=== PATIENT | male | born 1970 | race Caucasian/White ===

== ENCOUNTER 2017-11-22 07:42 | Day surgery (SDC) | payer OTHER ==
[2017-11-22 08:46] LABS: Absolute Lymphocytes (CBC) 0.9 K/uL (0.7-4.9); Absolute Monocytes 0.7 K/uL (0.1-1.3); Absolute Neutrophil 13.7 K/uL (1.8-8.0); Basophils % 0.3 % (0-1.3); Eosinophils % 0.1 % (0-4.4); Hematocrit 44.6 % (39.6-49.0); MCH 34.9 pg (27.0-35.0); MCV 98.4 fL (80-100); Monocytes % 4.6 % (3.3-12.3); RBC Red Blood Cell Count 4.53 M/uL (4.33-5.43)
[2017-11-22] MEDS ORDERED: MORPHINE 4 MG/ML SYR ONE (08:51)
[2017-11-22] MEDS ORDERED: ONDANSETRON 4 MG/2 ML VIAL ONE (08:51)
[2017-11-22] MEDS ORDERED: NA CHLORIDE 0.9% 1,000 ML ONE (08:52)
[2017-11-22] MEDS ORDERED: PANTOPRAZOLE 40 MG INJ ONE (08:52)
[2017-11-22 08:58] LABS: ALT/SGPT 18 U/L (12-78); AST/SGOT 17 U/L (15-37); Albumin 3.6 g/dL (3.4-5.0); Alkaline Phosphatase 78 U/L (45-117); BUN Blood Urea Nitrogen 10 mg/dL (7-18); Bicarbonate 28 mmol/L (21-32); Bilirubin Direct 0.2 mg/dL (0-0.2); Bilirubin Total 0.5 mg/dL (0.2-1.0); CKMB Creatine Kinase MB < 1.0 ng/mL (0.3-3.6); Creatine Phosphokinase 54 U/L (39-308); Glucose Level 126 mg/dL (74-106); Lipase 181 U/L (73-393); NT PRO-BNP 264 pg/mL (<125); Potassium 3.6 mmol/L (3.5-5.1); Protein, Total 8.3 g/dL (6.4-8.2); Sodium Level 138 mmol/L (136-145)
--- NOTE | 2017-11-22 09:37 | EKG ---
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
[2017-11-22 10:10] LABS: Urine Blood NEGATIVE (NEG); Urine Glucose NEGATIVE (NEG); Urine Protein 2+ (NEG)
[2017-11-22 10:16] LABS: Blood Morphology Comment NOT SEEN (NOT SEEN); Platelet Estimate ADEQ; Urine White Blood Cell Casts OK
--- NOTE | 2017-11-22 10:22 | RAD REPORT ---
EXAM DESCRIPTION: CT - Abdomen Pelvis W Contrast - 11/22/2017 10:08 am CLINICAL HISTORY: Abdominal pain and vomiting since this morning 1 COMPARISON: None. TECHNIQUE: Computed axial tomography of the abdomen and pelvis was obtained. 100 cc Isovue-300 is ad ministered intravenously. Oral contrast was given. All CT scans are performed using dose optimization technique as appropriate and may include automated exposure control or mA/KV adjustment according to patient size. FINDINGS: The liver, spleen, pancreas, adrenals and kidneys appear unremarkable. The the appendix is dilated and fluid-filled. The proximal appendix extends inferiorly from the cecum . The remainder the appendix extends superiorly and medially. A small amount of free fluid is present . There is no evidence of diverticulitis IMPRESSION: Appendicitis
--- NOTE | 2017-11-22 10:32 | EDPHYS ---
Physician Documentation [facility] Name: Tavo Carney II Age: 47 yrs Sex: Male : 1970 Arrival Date: 11/22/2017 Time: 07:46 Bed 17 Private MD: None, None ED Physician Nolan Rebollar HPI: 11/22 08:08 This 47 yrs old Male presents to ER via Ambulatory with complaints of jasiel Abdominal Pain. 08:08 The patient presents with abdominal pain in the epigastric area, in the upper abdomen. jasiel Onset: The symptoms/episode began/occurred 3 day(s) ago. The patient presents to the emergency department with nausea, vomiting, diarrhea. Onset: The symptoms/episode began/occurred 3 day(s) ago. Possible causes: unknown. The symptoms are aggravated by nothing. The symptoms are alleviated by nothing. Associated signs and symptoms: The patient has no apparent associated signs or symptoms. The symptoms do not radiate. Associated signs and symptoms: none. Historical: - Allergies: 08:03 No Known Allergies; ch - Home Meds: 08:03 None [Active]; ch - PMHx: 08:03 None; ch - PSHx: 08:03 None; ch - Immunization history:: Adult Immunizations up to date, Last tetanus immunization: up to date Flu vaccine is not up to date. - Social history:: Smoking status: Patient uses tobacco products, smokes two packs cigarettes per day. Patient uses alcohol, only on a social basis. weekly. - Ebola Screening: : Patient negative for fever greater than or equal to 101.5 degrees Fahrenheit, and additional compatible Ebola Virus Disease symptoms Patient denies exposure to infectious person Patient denies travel to an Ebola-affected area in the 21 days before illness onset No symptoms or risks identified at this time. - Family history:: not pertinent. ROS: 08:08 Constitutional: Negative for fever, chills, and weight loss, Eyes: Negative for injury, jasiel pain, redness, and discharge, ENT: Negative for injury, pain, and discharge, Neck: Negative for injury, pain, and swelling, Cardiovascular: Negative for chest pain, palpitations, and edema, Respiratory: Negative for shortness of breath, cough, wheezing, and pleuritic chest pain, Back: Negative for injury and pain, : Negative for injury, bleeding, discharge, and swelling, MS/Extremity: Negative for injury and deformity, Skin: Negative for injury, rash, and discoloration, Neuro: Negative for headache, weakness, numbness, tingling, and seizure, Psych: Negative for depression, anxiety, suicide ideation, homicidal ideation, and hallucinations, Allergy/Immunology: Negative for hives, rash, and allergies, Endocrine: Negative for neck swelling, polydipsia, polyuria, polyphagia, and marked weight changes, Hematologic/Lymphatic: Negative for swollen nodes, abnormal bleeding, and unusual bruising. 08:08 Abdomen/GI: Positive for abdominal pain, of the epigastric area and left upper quadrant. Exam: 08:08 Constitutional: This is a well developed, well nourished patient who is awake, alert, jasiel and in no acute distress. Head/Face: Normocephalic, atraumatic. Eyes: Pupils equal round and reactive to light, extra-ocular motions intact. Lids and lashes normal. Conjunctiva and sclera are non-icteric and not injected. Cornea within normal limits. Periorbital areas with no swelling, redness, or edema. ENT: Nares patent. No nasal discharge, no septal abnormalities noted. Tympanic membranes are normal and external auditory canals are clear. Oropharynx with no redness, swelling, or masses, exudates, or evidence of obstruction, uvula midline. Mucous membranes moist. Neck: Trachea midline, no thyromegaly or masses palpated, and no cervical lymphadenopathy. Supple, full range of motion without nuchal rigidity, or vertebral point tenderness. No Meningismus. Chest/axilla: Normal chest wall appearance and motion. Nontender with no deformity. No lesions are appreciated. Cardiovascular: Regular rate and rhythm with a normal S1 and S2. No gallops, murmurs, or rubs. Normal PMI, no JVD. No pulse deficits. Respiratory: Lungs have equal breath sounds bilaterally, clear to auscultation and percussion. No rales, rhonchi or wheezes noted. No increased work of breathing, no retractions or nasal flaring. Back: No spinal tenderness. No costovertebral tenderness. Full range of motion. Male : Normal genitalia with no discharge or lesions. Skin: Warm, dry with normal turgor. Normal color with no rashes, no lesions, and no evidence of cellulitis. MS/ Extremity: Pulses equal, no cyanosis. Neurovascular intact. Full, normal range of motion. Neuro: Awake and alert, GCS 15, oriented to person, place, time, and situation. Cranial nerves II-XII grossly intact. Motor strength 5/5 in all extremities. Sensory grossly intact. Cerebellar exam normal. Normal gait. Psych: Awake, alert, with orientation to person, place and time. Behavior, mood, and affect are within normal limits. 08:08 Abdomen/GI: Inspection: abdomen appears normal, Bowel sounds: normal, Palpation: mild abdominal tenderness, moderate abdominal tenderness, in the epigastric area and left upper quadrant, Liver: no appreciated palpable abnormalities, Hernia: not appreciated. Vital Signs: 08:03 BP 162 / 107; Pulse 84; Resp 16; Temp 98.2; Pulse Ox 98% on R/A; Weight 74.84 kg; ch Height 5 ft. 7 in. (170.18 cm); Pain 8/10; 09:22 BP 158 / 82; Pulse 71; Resp 16; Temp 98.3; Pulse Ox 99% on R/A; Pain 2/10; ch 10:45 BP 160 / 97; Pulse 64; Resp 18; Temp 98.3; Pulse Ox 99% on R/A; Pain 2/10; ch 11:29 BP 165 / 84; Pulse 58; Resp 12; Pulse Ox 97% on R/A; Pain 2/10; ch 08:03 Body Mass Index 25.84 (74.84 kg, 170.18 cm) MDM: 07:56 Patient medically screened. [facility] 08:10 Data reviewed: vital signs, nurses notes, lab test result(s), EKG, radiologic studies, [facility] CT scan, plain films. 11/22 08:07 Order name: Basic Metabolic Panel; Complete Time: 10:25 [facility] 11/22 08:07 Order name: CBC with Diff; Complete Time: 10:25 [facility] 11/22 08:07 Order name: Ckmb; Complete Time: 10:25 [facility] 11/22 08:07 Order name: CPK; Complete Time: 10:25 [facility] 11/22 08:07 Order name: LFT's; Complete Time: 10:25 [facility] 11/22 08:07 Order name: Magnesium; Complete Time: 10:25 [facility] 11/22 08:07 Order name: NT PRO-BNP; Complete Time: 10:25 [facility] 11/22 08:07 Order name: PT-INR; Complete Time: 10:25 [facility] 11/22 08:07 Order name: Ptt, Activated; Complete Time: 10:25 [facility] 11/22 08:07 Order name: Troponin (emerg Dept Use Only); Complete Time: 10:25 [facility] 11/22 08:07 Order name: Lipase; Complete Time: 10: [facility] 11/22 08:52 Order name: CBC Smear Scan; Complete Time: 10:25 [facility] 11/22 09:25 Order name: Urine Dipstick--Ancillary (enter results); Complete Time: 10:25 11/22 10:37 Order name: Basic Metabolic Panel [facility] 11/22 08:07 Order name: XRAY Chest (1 view) [facility] 11/22 08:07 Order name: EKG; Complete Time: 08:08 [facility] 11/22 08:07 Order name: CT Abd/Pelvis - W/Contrast; Complete Time: 10:25 [facility] 11/22 10:37 Order name: NPO [facility] 11/22 10:37 Order name: Basic Metabolic Panel [facility] 11/22 10:37 Order name: CBC with Automated Diff [facility] 11/22 10:37 Order name: CBC with Automated Diff [facility] 11/22 10:37 Order name: Lipase [facility] 11/22 10:37 Order name: Lipase [facility] 11/22 10:37 Order name: Liver (Hepatic) Function [facility] 11/22 10:37 Order name: Liver (Hepatic) Function [facility] 11/22 08:07 Order name: Cardiac monitoring; Complete Time: 11:26 [facility] 11/22 08:07 Order name: EKG - Nurse/Tech; Complete Time: 09: [facility] 11/22 08:07 Order name: IV Saline Lock; Complete Time: 09:21 [facility] 11/22 08:07 Order name: Labs collected and sent; Complete Time: 09: [facility] 11/22 08:07 Order name: O2 Per Protocol; Complete Time: 09: [facility] 11/22 08:07 Order name: O2 Sat Monitoring; Complete Time: 09:21 [facility] 11/22 08:07 Order name: Urine Dipstick-Ancillary (obtain specimen); Complete Time: 09:22 [facility] Administered Medications: 08:45 Drug: NS 0.9% 1000 ml Route: IV; Rate: 1 bolus; Site: right forearm; 10:00 Follow up: IV Status: Completed infusion; IV Intake: 1000ml ch 08:50 Drug: morphine 4 mg Route: IVP; Site: right forearm; ch 11:25 Follow up: Response: No adverse reaction; Marked relief of symptoms ch 08:50 Drug: Zofran 4 mg Route: IVP; Site: right forearm; ch 11:25 Follow up: Response: No adverse reaction; Marked relief of symptoms ch 08:50 Drug: ProTONIX 40 mg Route: IVP; Site: right forearm; ch 11:24 Follow up: Response: No adverse reaction; Marked relief of symptoms ch 11:00 Drug: Zosyn 3.375 grams Route: IVPB; Infused Over: 60 mins; Site: right forearm; ch 11:59 Follow up: IV Status: Infusion continued upon admission; IV Intake: 80ml Disposition: 11/22/17 10:32 Hospitalization ordered by Primo Marin for Observation. Preliminary diagnosis are Acute appendicitis, Abdominal tenderness, Elevated white blood cell count. - Bed requested for Telemetry/MedSurg (observation). - Status is Observation. - Condition is Stable. - Problem is new. - Symptoms have improved. UTI on Admission? No Signatures: Dispatcher [employer] EDMS Isabelle Bauer Christina, RN RN Nolan Rebollar MD MD cha Corrections: (The following items were deleted from the chart) 11:07 10:32 Hospitalization Ordered by Ha Sheldon MD for Observation. Preliminary diagnosis bd is Acute appendicitis; Abdominal tenderness; Elevated white blood cell count. Bed requested for Telemetry/MedSurg (observation). Status is Observation. Condition is Stable. Problem is new. Symptoms have improved. UTI on Admission? No. jasiel 11:59 11:07 11/22/2017 10:32 Hospitalization Ordered by Primo Marin MD for Observation. Preliminary diagnosis is Acute appendicitis; Abdominal tenderness; Elevated white blood cell count. Bed requested for Telemetry/MedSurg (observation). Status is Observation. Condition is Stable. Problem is new. Symptoms have improved. UTI on Admission? No. bd
--- NOTE | 2017-11-22 10:32 | ER ---
Nurse's Notes [facility] Name: Tavo Carney II Age: 47 yrs Sex: Male : 1970 Arrival Date: 11/22/2017 Time: 07:46 Bed 17 Private MD: None, None Diagnosis: Acute appendicitis;Abdominal tenderness;Elevated white blood cell count Presentation: 11/22 08:01 Presenting complaint: Patient states: abdominal pain since 1800 yesterday. for the past ch year however I have had stomach issues, diarrhea, black stools, tarry stools, I always have some stomach cramps and aches. vomiting started this morning, and the pain is unlike anything I have ever felt. Transition of care: patient was not received from another setting of care. Onset of symptoms was November 21, 2017 at 18:00. Risk Assessment: Do you want to hurt yourself or someone else? Patient reports no desire to harm self or others. Initial Sepsis Screen: Does the patient meet any 2 criteria? No. Patient's initial sepsis screen is negative. Does the patient have a suspected source of infection? No. Patient's initial sepsis screen is negative. Care prior to arrival: None. 08:01 Method Of Arrival: Ambulatory 08:01 Acuity: CESAR 3 ch Triage Assessment: 08:03 General: Appears in no apparent distress. comfortable, Behavior is calm, cooperative. Pain: Complains of pain in epigastric area, right upper quadrant and left upper quadrant Pain currently is 8 out of 10 on a pain scale. Neuro: No deficits noted. Cardiovascular: No deficits noted. Respiratory: No deficits noted. Airway is patent Respiratory effort is even, unlabored. GI: Reports upper abdominal pain, nausea, vomiting. GI: Abdomen is flat, non-distended, Bowel sounds present X 4 quads. Abd is soft X 4 quads Abdomen is tender to palpation in right upper quadrant, left upper quadrant and abdomen diffusely. : No signs and/or symptoms were reported regarding the genitourinary system. Derm: No signs and/or symptoms reported regarding the dermatologic system. Skin is pink, warm \T\ dry. Musculoskeletal: Circulation, motion, and sensation intact. Historical: - Allergies: 08:03 No Known Allergies; ch - Home Meds: 08:03 None [Active]; ch - PMHx: 08:03 None; ch - PSHx: 08:03 None; - Immunization history:: Adult Immunizations up to date, Last tetanus immunization: up to date Flu vaccine is not up to date. - Social history:: Smoking status: Patient uses tobacco products, smokes two packs cigarettes per day. Patient uses alcohol, only on a social basis. weekly. - Ebola Screening: : Patient negative for fever greater than or equal to 101.5 degrees Fahrenheit, and additional compatible Ebola Virus Disease symptoms Patient denies exposure to infectious person Patient denies travel to an Ebola-affected area in the 21 days before illness onset No symptoms or risks identified at this time. - Family history:: not pertinent. Screenin:22 Abuse screen: Denies threats or abuse. Denies injuries from another. Nutritional screening: No deficits noted. Tuberculosis screening: No symptoms or risk factors identified. Fall Risk None identified. Assessment: 09:22 Reassessment: Patient appears in no apparent distress at this time. Patient and/or family updated on plan of care and expected duration. Pain level reassessed. Patient is alert, oriented x 3, equal unlabored respirations, skin warm/dry/pink. Patient states feeling better. Patient states symptoms have improved. 09:43 Reassessment: Patient appears in no apparent distress at this time. No changes from previously documented assessment. Patient and/or family updated on plan of care and expected duration. Pain level reassessed. Patient is alert, oriented x 3, equal unlabored respirations, skin warm/dry/pink. 10:45 Reassessment: Patient appears in no apparent distress at this time. No changes from previously documented assessment. Patient and/or family updated on plan of care and expected duration. Pain level reassessed. Patient is alert, oriented x 3, equal unlabored respirations, skin warm/dry/pink. 11:26 Reassessment: Patient appears in no apparent distress at this time. Patient and/or family updated on plan of care and expected duration. Pain level reassessed. Patient is alert, oriented x 3, equal unlabored respirations, skin warm/dry/pink. DR. Marin speaks with pt, pt consent form filled out and at bedside. pt verb understanding of procedure and precautions, and NPO status. family at bedside. 11:58 Reassessment: Patient appears in no apparent distress at this time. report given at bedside to RN. Vital Signs: 08:03 BP 162 / 107; Pulse 84; Resp 16; Temp 98.2; Pulse Ox 98% on R/A; Weight 74.84 kg; ch Height 5 ft. 7 in. (170.18 cm); Pain 8/10; 09:22 BP 158 / 82; Pulse 71; Resp 16; Temp 98.3; Pulse Ox 99% on R/A; Pain 2/10; ch 10:45 BP 160 / 97; Pulse 64; Resp 18; Temp 98.3; Pulse Ox 99% on R/A; Pain 2/10; ch 11:29 BP 165 / 84; Pulse 58; Resp 12; Pulse Ox 97% on R/A; Pain 2/10; ch 08:03 Body Mass Index 25.84 (74.84 kg, 170.18 cm) ED Course: 07:46 Patient arrived in ED. mr 07:47 None, None is Private Physician. mr 07:56 Nolan Rebollar MD is Attending Physician. [facility] 08:01 Irma Polanco, RN is Primary Nurse. 08:03 Triage completed. 08:03 Arm band placed on left wrist. ch 08:35 No apparent distress. Resting quietly. ch 08:35 No provider procedures requiring assistance completed. Inserted saline lock: 20 gauge ch in right forearm, using aseptic technique. Blood collected. 08:35 Urine collected: clean catch specimen. ch 09:22 Patient has correct armband on for positive identification. Placed in gown. Bed in low ch position. Call light in reach. Side rails up X 1. Adult w/ patient. site monitor on. Pulse ox on. NIBP on. Warm blanket given. 09:44 X-ray completed. Portable x-ray completed in exam room. Patient tolerated procedure jb2 well. 09:49 XRAY Chest (1 view) In Process Unspecified. EDMS 10:05 CT completed. Patient tolerated procedure well. Patient moved to CT via wheelchair. sj Patient moved back from CT. 10:08 CT Abd/Pelvis - W/Contrast In Process Unspecified. EDMS 10:31 aH Sheldon MD is Hospitalizing Provider. jasiel 11:07 Hospitalizing Provider role handed off by Ha Sheldon MD bd 11:07 Primo Marin MD is Hospitalizing Provider. bd 19:16 Patient admitted, IV remains in place. ch Administered Medications: 08:45 Drug: NS 0.9% 1000 ml Route: IV; Rate: 1 bolus; Site: right forearm; ch 10:00 Follow up: IV Status: Completed infusion; IV Intake: 1000ml ch 08:50 Drug: morphine 4 mg Route: IVP; Site: right forearm; ch 11:25 Follow up: Response: No adverse reaction; Marked relief of symptoms ch 08:50 Drug: Zofran 4 mg Route: IVP; Site: right forearm; ch 11:25 Follow up: Response: No adverse reaction; Marked relief of symptoms ch 08:50 Drug: ProTONIX 40 mg Route: IVP; Site: right forearm; ch 11:24 Follow up: Response: No adverse reaction; Marked relief of symptoms ch 11:00 Drug: Zosyn 3.375 grams Route: IVPB; Infused Over: 60 mins; Site: right forearm; ch 11:59 Follow up: IV Status: Infusion continued upon admission; IV Intake: 80ml ch Intake: 10:00 IV: 1000ml; Total: 1000ml. ch 11:59 IV: 80ml; Total: 1080ml. ch Outcome: 10:32 Decision to Hospitalize by Provider. [facility] 11:45 Admitted to OR accompanied by nurse, via wheelchair, with chart. 11:45 Condition: stable 11:45 Instructed on the need for admit. 11:59 Patient left the ED. Signatures: Dispatcher [employer] EDMS Isabelle Bauer Christina, RN RN ch Anderson, Corey, MD MD cha Rivera, Maria mr Buechter, Jesse jb2 Jones, Susan sj
[2017-11-22] MEDS ORDERED: ONDANSETRON 4 MG/2 ML VIAL IV PRN (10:34)
[2017-11-22] MEDS ORDERED: ACETAMINOPHEN 500 MG TAB PO PRN (10:34)
[2017-11-22] MEDS ORDERED: MORPHINE 4 MG/ML SYR IV PRN (10:35)
[2017-11-22] MEDS ORDERED: D5 0.45 NS 1,000 ML IV SCH (11:00)
[2017-11-22] MEDS ORDERED: PIPER/TAZO/NS 3.375gm 3.375 GM/100 ML BAG ONE (11:01)
[2017-11-22] MEDS ORDERED: PIPER/TAZO/NS 3.375gm 3.375 GM/100 ML BAG IVPB SCH (12:00)
[2017-11-22] MEDS ORDERED: Ringers Lactate 1,000 ML IV ONE (12:15)
--- NOTE | 2017-11-22 12:16 | RAD REPORT ---
EXAM DESCRIPTION: Saulo Single View11/22/2017 9:49 am CLINICAL HISTORY: Abdominal pain COMPARISON: none FINDINGS: The lungs appear clear of acute infiltrate. The heart is normal size IMPRESSION: No acute abnormalities displayed
[2017-11-22] MEDS ORDERED: MIDAZOLAM HCL 2 MG/2 ML INJ ONE (13:00)
[2017-11-22] MEDS ORDERED: FENTANYL CITR 100 MCG/2 ML ONE ×2 (13:00→13:52)
[2017-11-22] MEDS ORDERED: PROPOFOL 200 MG/20 ML VIAL IV ONE (13:00)
[2017-11-22] MEDS ORDERED: MEPERIDINE HCL 50 MG/ML AMP ONE (13:01)
[2017-11-22] MEDS ORDERED: PROMETHAZINE 25 MG/ML VIAL ONE (13:01)
[2017-11-22] MEDS ORDERED: ROCURONIUM 50 MG/5 ML VIAL IV ONE (13:01)
[2017-11-22] MEDS ORDERED: ONDANSETRON HCL 40 MG/20 ML VIAL ONE (13:01)
[2017-11-22] MEDS ORDERED: KETOROLAC 30 MG/ML INJ ONE (14:02)
[2017-11-22] MEDS ORDERED: GLYCOPYRROLATE 0.2 MG/ML SYR ONE (14:02)
[2017-11-22] MEDS ORDERED: NEOSTIGMINE 1 MG/ML -5 ML SYRINGE ONE (14:02)
[2017-11-22] MEDS ORDERED: FAMOTIDINE 20 MG/2 ML VIAL IV SCH (21:00)
--- NOTE | 2017-11-22 22:38 | HP ---
Date of Admission: 11/22/2017 Diagnosis: Acute appendicitis. History Of Present Illness: This is a case of a 47-year-old patient, comes to us with complaint of a bdominal pain since yesterday 6 o'clock in the afternoon, associated with nausea and vomiting. He de scribes the pain as crampy in nature, never had this before. He denies any dysuria, hematuria, hemat ochezia, or melena, although he states some times dark stool. He was advised the importance. I have discussed that with his primary doctor, so he can have a proper workup for that. Past Medical History: None. Allergies: NONE. Past Surgical History: None. Social History: He does smoke. He does not drink alcohol. Family History: Noncontributory. Review of Systems: Ten points otherwise unremarkable. Physical Examination: General: The patient is awake and alert. HEENT: Pupils are equal, reactive, and anicteric. Neck: Supple. Chest: Clear. Heart: S1, S2. Abdomen: Soft and depressible. There is right lower quadrant tenderness with guarding and rebound. Rovsing sign is positive. Psoas sign is positive. Genitalia: No tenderness. Rectal: Deferred. Extremities: Good capillary refill. Neuro: Cranial nerves 2 through 12 grossly within normal limits. Laboratory Data: Blood work shows WBC count of 15.4, hemoglobin of 15.8. Sodium of 138, glucose of 126. CAT scan of the abdomen and pelvis, interpreted by Dr. Fulton as acute appendicitis with diste nded appendix. Assessment And Plan: He is a 47-year-old patient with acute appendicitis. The benefits, alternative s, and risks of laparoscopic possible open appendectomy were fully explained to the patient, which in clude but are not limited to infection, bleeding, damage to adjacent structures, anesthesia complicat ions, myocardial infarction, even . He also understands this may not relieve the symptoms. He might need more than one surgical intervention. He understood and signed a consent. He was booked e mergently in the OR. WILLI/WADE Voice ID: [id number]
--- NOTE | 2017-11-23 00:52 | OP ---
Date of Procedure: 11/22/2017 Surgeon: Primo Marin MD Biology Internship: DAYA [facility]. Preoperative Diagnosis: Acute appendicitis. Postoperative Diagnosis: Acute appendicitis. Procedure: Laparoscopic appendectomy. Findings: Acute appendicitis. Indications: This is the case of a 47-year-old patient with above diagnosis fully explained the bene fits, alternatives, and risks of laparoscopic, possible open appendectomy which include but are not l imited to infection, bleeding, damage to adjacent structures, anesthesia complication, WA, and even d eath. He also understand, this may not relieve any symptoms. He might need more than one surgical i ntervention. He understood and signed a consent. Description Of Procedure: The patient was brought to the operating room and placed in the supine pos ition. Anesthesia was done without complication. Abdominal area was prepped and draped in a sterile fashion. Marcaine 0.5% injected for local anesthetic, followed by sharp incision of the skin in the infraumbilical region. Incision was carried down to fascia, which was opened under direct vision. Peritoneum was encountered, opened under direct vision. Vicryl #1 placed inside the fascia. Onofre trocar was carefully introduced. No bleeding was obtained. I placed 2 more trocars, 5 mm each one o f them, in the suprapubic and left lower quadrant under direct visualization. We noticed the appendi x to be inflamed. We proceeded to create a window in the base of the appendix and transected that wi th an Endo ERIK 45 mm 3.5, and the mesoappendix with an Endo ERIK 45 mm 2.5. Further hemostasis was ob tained with the help of hemoclips 5 mm. The appendix was removed from abdominal cavity using EndoCat ch through umbilical incision. The area was inspected once again. No bowel leak. No bleeding. At that moment, I proceeded to remove the trocars under direct vision. Deflated pneumoperitoneum. Clos ed the fascia and the umbilical hernia with #1 Vicryl. Irrigated subcu tissue, closed that with 3-0 chromic and then the skin with elle. Sponge count and instrument counts were correct. The patien t tolerated the procedure well. The patient was sent to recovery in stable condition Disposition: Home. Activity: As tolerated. No heavy lifting. Followup: Follow up in my office in 1 week. Call for appointment on [phone]. Medications: 1.Cipro 500 p.o. q.12. 2.Vicodin q.4 hours p.r.n. pain. 3.Phenergan 25 p.o. q.6 hours p.r.n. nausea. WILLI/WADE Voice ID: [id number] Report ID: [id number]
== END 2017-11-22 15:49 | disposition home or self-care (01) ==
LOC: ER 07:42 → OR 11:35
PROVIDERS: ATTEND Surgery
PROC: 0DTJ4ZZ Resection of Appendix, Percutaneous Endoscopic Approach (ICD-10-PCS; principal; 2017-11-22 13:15)
DX: K35.80 Unspecified acute appendicitis (principal); F17.200 Nicotine dependence, unspecified, uncomplicated
CPT/HCPCS: 36415; 71045; 74177; 80048; 80076; 81003; 82550; 82553; 83690; 83735; 83880; 84484; 85025; 85610; 85730; 88304; 93005; 96361; 96365; 96375; 99285; C9113; J2175; J2250; J2405; J2543; J2550; J2710; J3010; J7030; Q9967

== ENCOUNTER 2017-11-24 17:03 | Inpatient (IN) | payer OTHER ==
[2017-11-24] MEDS ORDERED: NA CHLORIDE 0.9% 0 ML ONE (17:27)
[2017-11-24] MEDS ORDERED: NA CHLORIDE 0.9% 1,000 ML ONE ×2 (17:37→18:26)
[2017-11-24 17:47] LABS: Absolute Lymphocytes (CBC) 0.4 K/uL (0.7-4.9); Absolute Monocytes 1.2 K/uL (0.1-1.3); Absolute Neutrophil 26.9 K/uL (1.8-8.0); Basophils % 0.3 % (0-1.3); Eosinophils % 0.1 % (0-4.4); Hematocrit 43.3 % (39.6-49.0); Lymphocytes % 1.3 % (15.3-44.8); MCH 34.8 pg (27.0-35.0); MCV 98.8 fL (80-100); MPV 9.3 fL (7.6-11.3); Monocytes % 4.1 % (3.3-12.3); RBC Red Blood Cell Count 4.38 M/uL (4.33-5.43)
--- NOTE | 2017-11-24 17:59 | RAD REPORT ---
EXAM DESCRIPTION: CT - Abdomen Pelvis W Contrast - 11/24/2017 5:42 pm CLINICAL HISTORY: post surgical pain with distension, IV only,;Abd pain<Reason For Exam> Appendectomy 2 days earlier COMPARISON: Abdomen Pelvis W Contrast dated 11/22/2017<Comparisons> Lead selection TECHNIQUE: Biphasic, helical CT imaging of the abdomen and pelvis was performed following 100 ml non -ionic IV contrast. No oral contrast administered. All CT scans are performed using dose optimization technique as appropriate and may include automated exposure control or mA/KV adjustment according to patient size. FINDINGS: No suspicious findings in the lung bases. The liver, spleen, and pancreas show no suspicious findings. Gallbladder and biliary tree are also wi thout suspicious finding. Symmetric renal function is seen with no hydronephrosis or suspicious renal mass. No pyelonephritis o r acute renal parenchymal process. Mostly contracted urinary bladder shows no suspicious finding. No adrenal abnormality. There is a large amount of fluid and air dilating the stomach. No gastric wall thickening or mass. No gastric outlet obstruction. There is a diffuse dilatation throughout the small bowel. This extends t o the terminal ileum and ileocecal valve region. The oral CT contrast is present in the colon and ter bc ileum from the diagnostic study November 22. No extravasation of the oral contrast. No abscess or drainable fluid collection at the surgical site. There is free intraperitoneal fluid an a punctate a ir collection in the pelvis. Fluid and air are not outside of range of normal for recent appendectomy . There is congested or edematous appearance to the fat along the right side abdomen. No soft tissue mass or bulky lymphadenopathy. A few small reactive lymph nodes are present. A 4 centimeter long segment of mid sigmoid colon shows circumferential wall thickening and luminal na rrowing. This is probably a peristalsis artifact. Oral contrast is present proximal and distal to thi s point. No suspicious bony findings. IMPRESSION: Significant gastric and small bowel dilatation to the level of the terminal ileum ileoce jennifer valve region. Pronounced ileus is favored. Adhesion would not develop over such a short interval. The very pronounced spasm near the terminal il eum is possible. Moderate free fluid is present with a few punctate free air collections. This is probably post surgic al fluid and air. Bowel perforation is not suspected. No abscess identified. Circumferential narrowing in the mid sigmoid colon is believed to be either peristalsis artifact or p ostinflammatory spasm. Colon mass is unlikely but not entirely excluded.
[2017-11-24 18:06] LABS: Albumin 2.8 g/dL (3.4-5.0); Bilirubin Direct 0.2 mg/dL (0-0.2); Bilirubin Total 0.7 mg/dL (0.2-1.0); Potassium 3.5 mmol/L (3.5-5.1)
[2017-11-24 18:16] LABS: Blood Morphology Comment NOT SEEN (NOT SEEN); Platelet Estimate ADEQ; Toxic Granulation 1+
--- NOTE | 2017-11-24 18:20 | EDPHYS ---
Physician Documentation [facility] Name: Tavo Carney II Age: 47 yrs Sex: Male : 1970 Arrival Date: 11/24/2017 Time: 17:05 Bed 5 Private MD: None, None ED Physician Roel Hayden HPI: 11/24 17:26 This 47 yrs old Male presents to ER via Ambulatory with complaints of Post burner shaft Pain - ABD. 17:26 The patient presents with abdominal pain abdominal distention. Onset: The rn symptoms/episode began/occurred yesterday. The symptoms do not radiate. Associated signs and symptoms: Pertinent positives: anorexia, constipation, nausea, vomiting, Pertinent negatives: blood in stools. The symptoms are described as achy. Modifying factors: The symptoms are alleviated by nothing, the symptoms are aggravated by movement, touching the area. Severity of pain: At its worst the pain was moderate in the emergency department the pain is unchanged. The patient has not experienced similar symptoms in the past. Reports 2 days post-op from laparoscopic appendectomy by Dr. Gil, states "has been eating the pain meds", but today abdomen more bloated, no appetite, + nausea/vomiting, + constipation. . Historical: - Allergies: 17:11 No Known Allergies; aj - Home Meds: 17:11 hydrocodone-acetaminophen 5-325 mg Oral tab 1 tab every 6 hours [Active]; aj - PMHx: 17:11 None; aj - PSHx: 17:11 Appendectomy; aj - Immunization history:: Adult Immunizations up to date. - Social history:: Smoking status: Patient uses tobacco products, smokes one pack cigarettes per day. - Ebola Screening: : Patient negative for fever greater than or equal to 101.5 degrees Fahrenheit, and additional compatible Ebola Virus Disease symptoms Patient denies exposure to infectious person Patient denies travel to an Ebola-affected area in the 21 days before illness onset No symptoms or risks identified at this time. - Family history:: not pertinent. - Hospitalizations: : No recent hospitalization is reported. ROS: 17:26 Constitutional: Negative for fever, chills, and weight loss, Eyes: Negative for injury, rn pain, redness, and discharge, Neck: Negative for injury, pain, and swelling, Cardiovascular: Negative for chest pain, palpitations, and edema, Respiratory: Negative for shortness of breath, cough, wheezing, and pleuritic chest pain, Abdomen/GI: + abd pain and bloating, + constipation, + anorexia MS/Extremity: Negative for injury and deformity, Skin: Negative for injury, rash, and discoloration, Neuro: Negative for headache, weakness, numbness, tingling, and seizure. Exam: 17:26 Constitutional: Thin male, appears uncomfortable, holding abdomen, which looks rn distended Head/Face: Normocephalic, atraumatic. ENT: dry MM Neck: Trachea midline, no thyromegaly or masses palpated, and no cervical lymphadenopathy. Supple, full range of motion without nuchal rigidity, or vertebral point tenderness. No Meningismus. Cardiovascular: tachycardic regular, no murmur Respiratory: mild tachypnea, diminished at bases Abdomen/GI: distended and firm throughout, wound c/d/i Neuro: Awake and alert, GCS 15, oriented to person, place, time, and situation. Cranial nerves II-XII grossly intact. Motor strength 5/5 in all extremities. Sensory grossly intact. Vital Signs: 17:11 BP 172 / 126; Pulse 116; Resp 22; Temp 97.6; Pulse Ox 96% on R/A; Weight 61.23 kg; aj Height 5 ft. 6 in. (167.64 cm); 17:45 BP 176 / 103; Pulse 106; Resp 20; Pulse Ox 98% ; sv 18:45 BP 189 / 111; Pulse 96; Resp 18; Pulse Ox 98% ; sv 19:00 BP 171 / 111; Pulse 92; Resp 14; Pulse Ox 96% ; bp 17:11 Body Mass Index 21.79 (61.23 kg, 167.64 cm) aj MDM: 17:15 Patient medically screened. rn 18:18 Differential diagnosis: bowel obstruction, ileus. Data reviewed: vital signs, nurses rn notes, lab test result(s), radiologic studies, CT scan, and as a result, I will admit patient. Counseling: I had a detailed discussion with the patient and/or guardian regarding: the historical points, exam findings, and any diagnostic results supporting the discharge/admit diagnosis, lab results, radiology results, the need for further work-up and treatment in the hospital. Response to treatment: the patient's symptoms have mildly improved after treatment, and as a result, I will admit patient. Admission orders: after a detailed discussion of the patient's condition and case, the admit orders are written by me. ED course: Consulted with Dr. Gil, will admit for ileus, NG tube, abx. . 11/24 17:23 Order name: Basic Metabolic Panel rn 11/24 17:23 Order name: CBC with Diff rn 11/24 17:23 Order name: Creatinine for Radiology; Complete Time: 18:04 rn 11/24 17:23 Order name: Hepatic Function rn 11/24 17:23 Order name: Lipase rn 11/24 18:15 Order name: Manual Differential EDMS 11/24 17:23 Order name: IV Saline Lock; Complete Time: 17:35 rn 11/24 17:23 Order name: Labs collected and sent; Complete Time: 17:35 rn 11/24 17:23 Order name: CT Abd/Pelvis - W/Contrast; Complete Time: 18:01 rn 11/24 18:13 Order name: NG Tube; Complete Time: 19:12 rn 11/24 18:14 Order name: NPO; Complete Time: 18:17 rn Administered Medications: 17:30 Drug: NS 0.9% 1000 ml Route: IV; Rate: 1000 ml; Site: left forearm; sv 18:30 Follow up: Response: No adverse reaction; IV Status: Completed infusion; IV Intake: sv 1000ml 19:11 Drug: Flagyl 500 mg Volume: 100 ml; Route: IVPB; Rate: 200 ml/hr; Infused Over: 30 sv mins; Site: right forearm; 20:03 Follow up: IV Status: Completed infusion; IV Intake: 100ml bp 19:11 Drug: NS 0.9% 1000 ml Route: IV; Rate: 125 ml/hr; Site: right forearm; sv 20:04 Follow up: IV Status: Infusion continued upon admission bp 20:04 Drug: LevaQUIN 750 mg Volume: 150 ml; Route: IVPB; Infused Over: 90 mins; Site: right bp antecubital; 20:04 Follow up: IV Status: Infusion continued upon admission bp Disposition: 11/24/17 18:19 Hospitalization ordered by Primo Gil for Inpatient Admission. Preliminary diagnosis is Ileus, unspecified. - Bed requested for Telemetry/MedSurg (Inpatient). - Status is Inpatient Admission. bp - Condition is Stable. - Problem is new. - Symptoms have improved. UTI on Admission? No Signatures: Dispatcher [employer] EDMadison Isabel, RN Louise Sloan RN Margo Babin RN RN aj Nieto, Roman, MD MD rn Peltier, Brian, RN RN bp Corrections: (The following items were deleted from the chart) 19:56 18:19 Hospitalization Ordered by Primo Gil MD for Inpatient Admission. Preliminary diagnosis is Ileus, unspecified. Bed requested for Telemetry/MedSurg (Inpatient). Status is Inpatient Admission. Condition is Stable. Problem is new. Symptoms have improved. UTI on Admission? No. rn 20:54 19:56 11/24/2017 18:19 Hospitalization Ordered by Primo Gil MD for Inpatient bp Admission. Preliminary diagnosis is Ileus, unspecified. Bed requested for Telemetry/MedSurg (Inpatient). Status is Inpatient Admission. Condition is Stable. Problem is new. Symptoms have improved. UTI on Admission? No. mw
--- NOTE | 2017-11-24 18:20 | ER ---
Nurse's Notes [facility] Name: Tavo Carney II Age: 47 yrs Sex: Male : 1970 Arrival Date: 11/24/2017 Time: 17:05 Bed 5 Private MD: None, None Diagnosis: Ileus, unspecified Presentation: 11/24 17:10 Presenting complaint: Patient states: Appendectomy on Wednesday. Reports bloating and pain aj that has gotten worse. Transition of care: patient was not received from another setting of care. Onset of symptoms was November 21, 2017. Risk Assessment: Do you want to hurt yourself or someone else? Patient reports no desire to harm self or others. Initial Sepsis Screen: Does the patient meet any 2 criteria? No. Patient's initial sepsis screen is negative. Does the patient have a suspected source of infection? No. Patient's initial sepsis screen is negative. Care prior to arrival: None. 17:10 Method Of Arrival: Ambulatory aj 17:10 Acuity: CESAR 3 aj Triage Assessment: 17:11 General: Appears in no apparent distress. uncomfortable, Behavior is cooperative, aj anxious. Pain: Complains of pain in abdomen. Neuro: Level of Consciousness is awake, alert, obeys commands, Oriented to person, place, time, situation, Appropriate for age. Respiratory: Airway is patent Respiratory effort is even, unlabored, Respiratory pattern is regular, symmetrical. GI: Abdomen is distended, Reports lower abdominal pain, upper abdominal pain. Derm: Skin is intact, is healthy with good turgor, Skin is pink, warm \T\ dry. normal. Historical: - Allergies: 17:11 No Known Allergies; aj - Home Meds: 17:11 hydrocodone-acetaminophen 5-325 mg Oral tab 1 tab every 6 hours [Active]; aj - PMHx: 17:11 None; aj - PSHx: 17:11 Appendectomy; aj - Immunization history:: Adult Immunizations up to date. - Social history:: Smoking status: Patient uses tobacco products, smokes one pack cigarettes per day. - Ebola Screening: : Patient negative for fever greater than or equal to 101.5 degrees Fahrenheit, and additional compatible Ebola Virus Disease symptoms Patient denies exposure to infectious person Patient denies travel to an Ebola-affected area in the 21 days before illness onset No symptoms or risks identified at this time. - Family history:: not pertinent. - Hospitalizations: : No recent hospitalization is reported. Screenin:40 Abuse screen: Denies threats or abuse. Denies injuries from another. Nutritional sv screening: No deficits noted. Tuberculosis screening: No symptoms or risk factors identified. Fall Risk None identified. Assessment: 17:20 General: Appears in no apparent distress. uncomfortable, slender, Behavior is sv cooperative, appropriate for age, restless. Pain: Complains of pain in abdomen Pain does not radiate. Pain currently is 10 out of 10 on a pain scale. Quality of pain is described as pressure, tender, Pain began Wednesday Is continuous, Noted to be grimacing, restless, Also complains of decreased appetite, constipation, sleeplessness, shortness of breath, Current management is with [place] is ineffective. Neuro: Level of Consciousness is awake, alert, obeys commands, Oriented to person, place, time, situation, Moves all extremities. Full function Gait is steady. Cardiovascular: Patient's skin is warm and dry. Respiratory: Respiratory effort is even, unlabored, Respiratory pattern is regular, symmetrical. GI: Abdomen is distended, Stools are reported to be constipated. Last BM was November 24, 2017. Abdomen is tender to palpation X 4 quads. Abd is rigid X 4 quads. : No signs and/or symptoms were reported regarding the genitourinary system. EENT: No signs and/or symptoms were reported regarding the EENT system. Derm: Skin is normal, Pt has a dressing to the abdomen from his surgery. Musculoskeletal: No signs and/or symptoms reported regarding the musculoskeletal system. 18:00 Reassessment: Patient appears in no apparent distress at this time. No changes from sv previously documented assessment. Patient and/or family updated on plan of care and expected duration. Pain level reassessed. Patient is alert, oriented x 3, equal unlabored respirations, skin warm/dry/pink. 19:00 Reassessment: RECD REPORT FROM MADISON ESPINOSA. 47YO WM P/W ABD PAIN AND DISTENSION SINCE bp APPENDECTOMY ON WEDNESDAY. NGT IN PLACE TO LIWS, ADMIT IN PROCESS. 19:10 Reassessment: Patient appears in no apparent distress at this time. Patient and/or sv family updated on plan of care and expected duration. Pain level reassessed. Patient is alert, oriented x 3, equal unlabored respirations, skin warm/dry/pink. Vital Signs: 17:11 BP 172 / 126; Pulse 116; Resp 22; Temp 97.6; Pulse Ox 96% on R/A; Weight 61.23 kg; aj Height 5 ft. 6 in. (167.64 cm); 17:45 BP 176 / 103; Pulse 106; Resp 20; Pulse Ox 98% ; sv 18:45 BP 189 / 111; Pulse 96; Resp 18; Pulse Ox 98% ; sv 19:00 BP 171 / 111; Pulse 92; Resp 14; Pulse Ox 96% ; bp 17:11 Body Mass Index 21.79 (61.23 kg, 167.64 cm) aj ED Course: 17:05 Patient arrived in ED. sb2 17:06 None, None is Private Physician. sb2 17:10 Triage completed. aj 17:11 Arm band placed on left wrist. Patient placed in an exam room. aj 17:14 Madison Barrera RN is Primary Nurse. sv 17:15 Roel Hayden MD is Attending Physician. rn 17:25 Patient has correct armband on for positive identification. Placed in gown. Bed in low sv position. Call light in reach. Side rails up X 1. Adult w/ patient. Pulse ox on. NIBP on. Door closed. Head of bed elevated. Diet: Patient is NPO. 17:25 Initial lab(s) drawn, by me, sent to lab. Inserted saline lock: 20 gauge in right sv forearm, using aseptic technique. Blood collected. Flushed right forearm with 5 ml normal saline. 17:29 Radiology exam delayed due to IV insertion attempt and/or patient not having jg6 appropriate IV at this time. 17:41 Awaiting lab results, Awaiting radiology results. sv 17:[address] nj 17:41 CT completed. Patient tolerated procedure well. Patient moved back from CT. nj 17:42 CT Abd/Pelvis - W/Contrast In Process Unspecified. EDMS 17:[address]. sv 18:19 Primo Marin MD is Hospitalizing Provider. rn 18:20 NGT: inserted 14 Fr. via right nare. other done by Margo ESPINOSA verified placement of air sv over stomach, verified return of gastric contents, to intermittent suction. Returned bile. 19:10 Report given to Theron ESPINOSA. sv 19:21 Primary Nurse role handed off by Madison Barrera, JESÚS sv 19:26 Theron Zhou, RN is Primary Nurse. bp 20:31 No provider procedures requiring assistance completed. Patient admitted, IV remains in bp place. Administered Medications: 17:30 Drug: NS 0.9% 1000 ml Route: IV; Rate: 1000 ml; Site: left forearm; sv 18:30 Follow up: Response: No adverse reaction; IV Status: Completed infusion; IV Intake: sv 1000ml 19:11 Drug: Flagyl 500 mg Volume: 100 ml; Route: IVPB; Rate: 200 ml/hr; Infused Over: 30 sv mins; Site: right forearm; 20:03 Follow up: IV Status: Completed infusion; IV Intake: 100ml bp 19:11 Drug: NS 0.9% 1000 ml Route: IV; Rate: 125 ml/hr; Site: right forearm; sv 20:04 Follow up: IV Status: Infusion continued upon admission bp 20:04 Drug: LevaQUIN 750 mg Volume: 150 ml; Route: IVPB; Infused Over: 90 mins; Site: right bp antecubital; 20:04 Follow up: IV Status: Infusion continued upon admission bp Intake: 18:30 IV: 1000ml; Total: 1000ml. sv 20:03 IV: 100ml; Total: 1100ml. bp Output: 19:05 Gastric: 950ml (NGT); Total: 950ml. bp Outcome: 18:19 Decision to Hospitalize by Provider. rn 20:31 Admitted to Med/surg accompanied by tech, family with patient, via wheelchair, room bp 212, with chart, Report called to JOY ESPINOSA 20:31 Condition: stable 20:31 Instructed on the need for admit. 20:54 Patient left the ED. bp Signatures: Dispatcher [employer] EDMS Madison Barrera, RN Margo Gould RN RN aj Nieto, Roman, MD MD rn Jordan, Nathan nj Peltier, Brian, Megan Manrique RN, Jessica jg6 Corrections: (The following items were deleted from the chart) 17:29 17:25 Radiology exam delayed due to lab results not completed at this time. jg6 (BUN/Creatinine) jg6
[2017-11-24] MEDS ORDERED: Levofloxacin 750mg IV 750 MG/150 ML BAG IV ONE (18:26)
[2017-11-24] MEDS ORDERED: METRONIDAZOLE 500mg IVPB 500 MG/100 ML BAG IV ONE (18:26)
[2017-11-24] MEDS ORDERED: ONDANSETRON 4 MG/2 ML VIAL IV PRN (20:08)
[2017-11-24] MEDS ORDERED: D5 0.45 NS 1,000 ML IV SCH (20:08)
[2017-11-24] MEDS ORDERED: Levofloxacin500mg IV 500 MG/100 ML BAG IV SCH (20:08)
[2017-11-24] MEDS ORDERED: MORPHINE 4 MG/ML SYR IV PRN (20:08)
[2017-11-24] MEDS ORDERED: SODIUM CHLORIDE 0.9% 10ML INJ IV PRN (20:34)
[2017-11-24] MEDS: NA CHLORIDE 0.9% 1,000 ML IV SCH ×2 (21:08→23:27)
[2017-11-24] MEDS: PANTOPRAZOLE 40 MG INJ IVP SCH (21:10)
[2017-11-24] MEDS: ONDANSETRON 4 MG/2 ML VIAL IV PRN (22:14)
[2017-11-24] MEDS: MORPHINE 4 MG/ML SYR IV PRN (22:20)
[2017-11-24] MEDS: METRONIDAZOLE 500mg IVPB 500 MG/100 ML BAG IV SCH (23:25)
[2017-11-25] MEDS ORDERED: METRONIDAZOLE 500mg IVPB 500 MG/100 ML BAG IV SCH (01:00)
[2017-11-25] MEDS: MORPHINE 4 MG/ML SYR IV PRN ×6 (04:24→22:22)
[2017-11-25] MEDS: ONDANSETRON 4 MG/2 ML VIAL IV PRN ×4 (04:25→20:07)
[2017-11-25] MEDS: METRONIDAZOLE 500mg IVPB 500 MG/100 ML BAG IV SCH ×4 (05:15→23:42)
[2017-11-25] MEDS: NA CHLORIDE 0.9% 1,000 ML IV SCH ×3 (05:15→21:50)
--- NOTE | 2017-11-25 05:15 | HP ---
Date of Admission: 11/24/2017 Reason For Service: Abdominal wall distention, ileus, abdominal pain. History Of Present Illness: This is a case of a 47-year-old patient with a history of appendicitis, received appendectomy within the last 48 hours. Diagnostic appendectomy uneventful. On the last 24 hours, he has been having some abdominal distention, some nausea. He has been trying to eat because he is hungry, but he noticed to have some abdominal distention. He came to the ER right now, found t o have an ileus with abdominal pain. He has been having some nausea, so the patient was admitted for observation. Before the surgery, the patient was having abdominal pain and swelling diagnosed with appendicitis and taken emergently to the OR. The procedure was done laparoscopically uneventful with swelling over the right side of the periappendiceal region. Pathology came back as acute appendicit is. Past medical history, surgical history, allergies, social habits, please see my previous H and P Review of Systems: Ten points otherwise unremarkable. Physical Examination: General: The patient is awake and alert. HEENT: Pupils are equal and reactive, anicteric. Neck: Supple. Chest: Clear. Abdomen: Softly distended. Incision is intact. Rectal: Deferred. Extremities: Good capillary refill. Neurologic: Cranial nerves 2-12 within normal limits. Laboratory Data: Blood work shows WBC count of 28.5 with a hemoglobin of 15.3, platelets of 294. So dium is 134, potassium 3.5, creatinine is 0.9. Total bilirubin of 0.7. CAT scan of the abdomen and pelvis show distended small bowel loops consistent with an ileus. Assessment And Plan: A 47-year-old patient, status post appendicitis within the last 48 hours. Fail ure of outpatient treatment, the patient has not been able to take all his antibiotics neither. The patient is distended. I believe this patient should be admitted, n.p.o., IV fluids, NG tube, IV anti biotics. We are going to do bowel rest and he understands the options and he agree with them. FLORA Voice ID: [id number]
[2017-11-25 05:34] LABS: Absolute Lymphocytes (CBC) 0.4 K/uL (0.7-4.9); Absolute Monocytes 0.9 K/uL (0.1-1.3); Absolute Neutrophil 22.1 K/uL (1.8-8.0); Basophils % 0.4 % (0-1.3); Eosinophils % 0.9 % (0-4.4); Lymphocytes % 1.8 % (15.3-44.8); MCH 34.7 pg (27.0-35.0); MCV 100.5 fL (80-100); Monocytes % 3.9 % (3.3-12.3); RBC Red Blood Cell Count 3.98 M/uL (4.33-5.43)
[2017-11-25 05:41] LABS: BUN Blood Urea Nitrogen 12 mg/dL (7-18); Bicarbonate 32 mmol/L (21-32); Glucose Level 99 mg/dL (74-106); Potassium 3.6 mmol/L (3.5-5.1); Sodium Level 136 mmol/L (136-145)
[2017-11-25 05:42] LABS: Urine Appearance TURBID; Urine Bilirubin NEGATIVE (NEG); Urine Blood NEGATIVE (NEG); Urine Color DK YELLOW; Urine Glucose NEGATIVE (NEG); Urine Protein 2+ (NEG); Urine Specific Gravity >=1.030 (1.005-1.030); Urine Urobilinogen 0.2 mg/dL (0.2-1.0); Urine pH 7.5 (5.0-7.0)
[2017-11-25 05:57] LABS: Urine Microscopic Reflex ORDER UMIC
[2017-11-25 06:09] LABS: Urine Amorphous Sediment 4+ /HPF (NONE SEEN); Urine Bacteria 20-50 /HPF (NONE SEEN); Urine Culture Reflex Order REFLEXED
[2017-11-25 06:10] LABS: Urine RBC NONE SEEN /HPF (NONE SEEN)
[2017-11-25] MEDS ORDERED: SIMETHICONE 80 MG TAB PO ONE (07:16)
[2017-11-25] MEDS: PANTOPRAZOLE 40 MG INJ IVP SCH (08:10)
--- NOTE | 2017-11-25 11:03 | RAD REPORT ---
EXAM DESCRIPTION: RAD - Abdomen Single View - 11/25/2017 8:58 am CLINICAL HISTORY: Abdominal pain FINDINGS: A nasogastric tube is present within the gastric fundus. Small bowel is mildly to moderately dilated. It is mildly diminished in caliber since the prior CAT s can. Most likely represents an adynamic ileus. Continued followup is recommended
[2017-11-25] MEDS: Levofloxacin 750mg IV 750 MG/150 ML BAG IV SCH (21:49)
[2017-11-26] MEDS: MORPHINE 4 MG/ML SYR IV PRN ×4 (00:35→10:22)
[2017-11-26] MEDS: NA CHLORIDE 0.9% 1,000 ML IV SCH ×3 (01:16→23:46)
[2017-11-26] MEDS: METRONIDAZOLE 500mg IVPB 500 MG/100 ML BAG IV SCH ×4 (04:53→23:47)
[2017-11-26] MEDS: ONDANSETRON 4 MG/2 ML VIAL IV PRN (04:56)
--- NOTE | 2017-11-26 09:45 | RAD REPORT ---
EXAM DESCRIPTION: RAD - Abdomen W Erect - 11/26/2017 9:37 am CLINICAL HISTORY: Ileus Pain COMPARISON: Abdomen Single View dated 11/25/2017 FINDINGS: Again noted is air-filled distention of both large and small bowel loops. This is most com patible with adynamic ileus appears slightly improved since the comparative study. Enteric tube desce nds into the stomach.
--- NOTE | 2017-11-26 09:53 | P.PN ---
Subjective Date of Service: 11/26/17 Chief Complaint: Post Op Ileus Subjective: Improving (Patient had large bowel movement, and gas, pain improving ) Physical Examination - Vital Signs Temperature: 97.2 F Blood Pressure: 161/93 Pulse: 85 Respirations: 20 Pulse Ox (%): 95 - Physical Exam General: Alert, Oriented x3 Gastrointestinal: Other (distended, + tympanic, +moderate global TTP, incisions clean) Assessment And Plan - Current Problems (Diagnosis) (1) Ileus Onset Date: 11/25/17 Current Visit: Yes Status: Acute Plan: ---Cross coverage for --- S/P Lap appendectomy with post op ileus - start TPN today - if abdominal symptoms improve will consider DC NG tube in AM - serial exams
[2017-11-26] MEDS: PANTOPRAZOLE 40 MG INJ IVP SCH (10:21)
[2017-11-26] MEDS ORDERED: AA 5%/D20W/ELECTROLYTES-TPN 2,000 ML, Lipids 20% 250 ML with MULTIVITAMINS INJ 10 ML IV SCH ×3 (17:00)
[2017-11-26] MEDS: Levofloxacin 750mg IV 750 MG/150 ML BAG IV SCH (20:27)
[2017-11-27] MEDS: METRONIDAZOLE 500mg IVPB 500 MG/100 ML BAG IV SCH ×2 (05:27→12:35)
[2017-11-27] MEDS: NA CHLORIDE 0.9% 1,000 ML IV SCH (09:00)
[2017-11-27] MEDS: PANTOPRAZOLE 40 MG INJ IVP SCH (09:00)
== END 2017-11-27 13:35 | disposition home or self-care (01) | DRG 390 ==
LOC: ER 17:03 → ERHOLD 18:22 → 2ND 20:01
PROVIDERS: ADMIT Surgery; ATTEND Surgery
DX: K56.7 Ileus, unspecified (principal); F17.210 Nicotine dependence, cigarettes, uncomplicated
CPT/HCPCS: 36415; 74018; 74019; 74177; 80048; 80076; 81003; 81015; 83690; 85025; 87086; 87088; 96361; 96365; 96375; 99285; C9113; J2405; J7030; Q9967

== ENCOUNTER 2020-05-30 00:55 | Emergency (ER) | payer OTHER ==
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
[2020-05-30 10:38] VITALS: BP 127/98; TEMP 98.3; O2SAT 99
--- NOTE | 2020-05-30 11:42 | RAD REPORT ---
EXAM DESCRIPTION: CT - [id number] - 05/30/2020 11:20 am CLINICAL HISTORY: Pain;Swelling COMPARISON: 03/13/2020 TECHNIQUE: Axial CT of the head obtained from the skull apex to the skull base without contrast. Axi al CT images of the cervical spine obtained from the skull base through the thoracic inlet. Sagittal and coronal reformatted images available. This exam was performed according to our departmental dose- optimization program, which includes automated exposure control, adjustment of the mA and/or kV accor ding to patient size and/or use of iterative reconstruction technique. FINDINGS: CT head: No acute intracranial hemorrhage identified. No mass, mass effect, shift of the midline, abnormal ext ra-axial fluid collection or CT evidence of acute ischemic change identified. The ventricular system is unremarkable. No acute abnormalities of the supratentorial white matter, basal ganglia, cerebell um, or brainstem. Mild mucosal thickening of the paranasal sinuses. Minimal opacities in the right mastoid air cells.. Atherosclerotic calcification of the intracranial internal carotid arteries. No skull fracture iden tified. Visualized orbits and globes are unremarkable. Small contusions in the anterior and posteri or scalp subcutaneous soft tissues. Cervical CT: Straightening of the cervical lordosis may be secondary to patient positioning. The atlantoaxial, a tlantodental, and occipitoatlantal intervals are preserved. 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 No acute fracture cervical spine. Prevertebral soft tissues are unremarkable. Moderately moderate multilevel loss of intervertebral disc height with endplate spondylosis, uncovert ebral spurring, and facet arthropathy. Visualized skull base is intact. No fracture of the visualized facial bones. Visualized mastoid air c ells and paranasal sinuses are well aerated. Visualized thyroid is unremarkable. No cervical lymphadenopathy. No pneumothorax in the visualized lung apices. Carotid artery atherosclerosis. IMPRESSION: 1. No acute intracranial abnormality identified. 2. No acute fracture or subluxation of the cervical spine. 3. Moderate multilevel degenerative change of the cervical spine. Electronically signed by: Onesimo Phillips 05/30/2020 1:53 AM BAG SEALER Due to temporary technical issues with the PACS/Fluency reporting system, reports are being signed by the in house radiologists without review as a courtesy to insure prompt reporting. The interpreting radiologist is fully responsible for the content of the report.
== END 2020-05-30 02:57 | disposition home or self-care (01) ==
LOC: ER 00:55
DX: S01.81XA Laceration without foreign body of other part of head, initial encounter (principal); S61.412A Laceration without foreign body of left hand, initial encounter; S07.9XXA Crushing injury of head, part unspecified, initial encounter; F10.129 Alcohol abuse with intoxication, unspecified; Y04.8XXA Assault by other bodily force, initial encounter; F17.290 Nicotine dependence, other tobacco product, uncomplicated
CPT/HCPCS: 70450; 72125; 99284; G0390